=== PATIENT | female | born 2005 | race Hispanic/Latino ===

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

== ENCOUNTER 2025-06-18 11:24 | Emergency (ER) | payer BC | END 2025-06-18 12:00 | disposition home or self-care (01) | LOC: CSHERS 11:24 | DX: O02.81 Inappropriate change in quantitative human chorionic gonadotropin (hCG) in early pregnancy (principal); Z3A.01 Less than 8 weeks gestation of pregnancy ==